=== PATIENT | male | born 1960 | race Caucasian/White ===

== ENCOUNTER 2022-03-23 12:55 | Inpatient (IN) | payer MEDICARE, OTHER ==
[~2022-03-23] VITALS: Ht 170.2 cm; Wt 74.4 kg
[2022-03-23] MEDS ORDERED: IV NS 0.9% 1,000 ML BAG IV ONE (15:00)
[2022-03-23 16:12] LABS: BASOPHILS % (AUTO) 0.2 % (0.0-2.0); EOSINOPHILS % (AUTO) 0.2 % (0.0-6.0); HEMATOCRIT 50 % (39-51); HEMOGLOBIN 16.1 g/dL (13.5-17.5); LYMPHOCYTES # (AUTO) 0.8 K/uL (0.8-4.8); LYMPHOCYTES % (AUTO) 5.5 % (20.0-44.0); MEAN CORPUSCULAR HGB CONC 32 g/dl (31.0-36.0); MEAN CORPUSCULAR VOLUME 87 fL (80-96); MONOCYTES # (AUTO) 1.5 K/uL (0.1-1.30); MONOCYTES % (AUTO) 10.1 % (2.0-12.0); NEUTROPHILS # (AUTO) 12.5 K/uL (1.8-8.9); PLATELET COUNT (AUTO) 133 K/uL (150-450); RED BLOOD CELL COUNT(AUTO) 5.81 MIL/uL (4.5-6.0); WHITE BLOOD COUNT (AUTO) 14.9 K/uL (4.3-11.0)
[2022-03-23 16:44] LABS: ALBUMIN 3.3 g/dL (3.4-5.0); BILIRUBIN,DIRECT 0.3 mg/dL (0.0-0.2); CALCIUM, SERUM 9.9 mg/dL (8.5-10.1); CREATININE 1.7 mg/dL (0.6-1.3); POTASSIUM 4.6 mmol/L (3.5-5.1); TOTAL PROTEIN, SERUM 8.4 g/dL (6.4-8.2)
[2022-03-23] MEDS ORDERED: DEXTROSE 50%-WATER 50 ML DISP.SYRIN IV PRN ×2 (18:30→19:30)
[2022-03-23] MEDS ORDERED: Z GUARD REMEDY 4 OZ OINT TP PRN (18:30)
[2022-03-23] MEDS ORDERED: ZOLPIDEM TARTRATE 5 MG TABLET PO PRN ×2 (18:30→19:30)
[2022-03-23] MEDS ORDERED: MAG HYDROX/AL HYDROX/SIMETH 30 ML UDC PO PRN (18:30)
[2022-03-23] MEDS ORDERED: INSULIN REGULAR, HUMAN 100 UNIT/ML 3 ML VIAL SQ PRN (18:30)
[2022-03-23] MEDS ORDERED: *INSULIN REGULAR(HUMULIN R)HUM 100 UNIT/ML VIAL SQ PRN (18:30)
[2022-03-23] MEDS ORDERED: IV NS 0.9% 1,000 ML IV PRN (18:30)
[2022-03-23] MEDS ORDERED: ACETAMINOPHEN 325 MG TABLET PO PRN ×2 (18:30→19:30)
[2022-03-23] MEDS ORDERED: MAGNESIUM HYDROXIDE 30 ML UDC PO PRN ×2 (18:30→19:30)
[2022-03-23] MEDS ORDERED: ONDANSETRON HCL/PF 4 MG/2 ML VIAL IVP PRN ×2 (18:30→19:30)
[2022-03-23] MEDS ORDERED: INSU100V7 SQ (18:31)
[2022-03-23] MEDS ORDERED: FAMO20TA8 PO (18:31)
[2022-03-23] MEDS ORDERED: ENOX80DI9 SQ (18:31)
[2022-03-23] MEDS ORDERED: SITA25TA PO (18:31)
[2022-03-23] MEDS ORDERED: TOLT4CAP PO (18:31)
[2022-03-23] MEDS ORDERED: ATOR10TA PO (18:31)
[2022-03-23] MEDS ORDERED: GABA300C PO (18:31)
[2022-03-23] MEDS ORDERED: ESCI10TA PO (18:31)
[2022-03-23] MEDS ORDERED: BUPR-54 PO (18:31)
[2022-03-23] MEDS ORDERED: BUSP10TA35 PO (18:31)
[2022-03-23] MEDS ORDERED: METO25TA20 PO (18:31)
[2022-03-23] MEDS ORDERED: BLOOD SUGAR DIAGNOSTIC 1 EACH STRIP VI SCH (19:30)
[2022-03-23] MEDS ORDERED: HYDROCODONE/APAP 5/325MG TABLET PO PRN (19:30)
[2022-03-23] MEDS ORDERED: MORPHINE SULFATE INJ 2 MG/ML DISP.SYRIN IV PRN (19:30)
[2022-03-23] MEDS ORDERED: ENOXAPARIN SODIUM 80 MG/0.8 ML DISP.SYRIN SQ SCH (21:00)
[2022-03-23] MEDS ORDERED: CEFTRIAXONE 1 G VIAL ONE (22:18)
[2022-03-23] MEDS: CEFTRIAXONE 1 G in IV D5W 50 ML IV SCH (22:30)
[2022-03-23] MEDS: BLOOD SUGAR DIAGNOSTIC 1 EACH STRIP VI SCH (22:31)
[2022-03-23] MEDS: ATORVASTATIN 10 MG TABLET PO SCH (22:31)
[2022-03-23] MEDS: *INSULIN REGULAR(HUMULIN R)HUM 100 UNIT/ML VIAL SQ PRN (22:34)
[2022-03-23] MEDS: METOPROLOL TARTRATE 25 MG TABLET PO SCH (22:35)
[2022-03-23] MEDS: IV NS 0.9% 1,000 ML IV SCH (22:37)
[2022-03-23] MEDS ORDERED: INSULIN GLARGINE, 100 UNIT/ML CARTRIDGE SQ ONE (23:21)
[2022-03-23] MEDS: INSULIN GLARGINE, 100 UNIT/ML CARTRIDGE SQ SCH (23:39)
[2022-03-24 04:00] VITALS: BP 108/73
[2022-03-24] MEDS: IV NS 0.9% 1,000 ML IV SCH ×2 (06:44→18:04)
[2022-03-24 06:57] LABS: BASOPHILS % (AUTO) 0.3 % (0.0-2.0); EOSINOPHILS % (AUTO) 0.7 % (0.0-6.0); HEMATOCRIT 45 % (39-51); HEMOGLOBIN 14.6 g/dL (13.5-17.5); LYMPHOCYTES # (AUTO) 1.4 K/uL (0.8-4.8); LYMPHOCYTES % (AUTO) 10.5 % (20.0-44.0); MEAN CORPUSCULAR HGB CONC 32 g/dl (31.0-36.0); MEAN CORPUSCULAR VOLUME 86 fL (80-96); MONOCYTES # (AUTO) 1.5 K/uL (0.1-1.30); MONOCYTES % (AUTO) 10.9 % (2.0-12.0); NEUTROPHILS # (AUTO) 10.6 K/uL (1.8-8.9); NEUTROPHILS % (AUTO) 77.6 % (43.0-81.0); PLATELET COUNT (AUTO) 109 K/uL (150-450); RED BLOOD CELL COUNT(AUTO) 5.28 MIL/uL (4.5-6.0); WHITE BLOOD COUNT (AUTO) 13.7 K/uL (4.3-11.0)
[2022-03-24 07:23] LABS: ALBUMIN 2.7 g/dL (3.4-5.0); BILIRUBIN,TOTAL 0.8 mg/dL (0.2-1.0); CREATININE 1.2 mg/dL (0.6-1.3); PHOSPHORUS 2.7 mg/dL (2.5-4.9); POTASSIUM 3.9 mmol/L (3.5-5.1); TOTAL PROTEIN, SERUM 7.4 g/dL (6.4-8.2)
[2022-03-24] MEDS: INSULIN ASPART/LISPRO 100 UNIT/ML CARTRIDGE SQ SCH ×3 (07:30→17:30)
[2022-03-24 08:51] LABS: THYROID STIMULATING HORMONE 2.09 uIU/mL (0.358-3.74)
[2022-03-24] MEDS ORDERED: ENOXAPARIN SODIUM 40 MG/0.4 ML DISP.SYRIN SQ SCH ×2 (09:00)
[2022-03-24] MEDS ORDERED: hydrALAZINE HCL 25 MG TABLET PO SCH (09:00)
[2022-03-24] MEDS: DOCUSATE SODIUM 100 MG CAPSULE PO SCH ×2 (09:07→17:00)
[2022-03-24] MEDS: BUPROPION XL 150 MG TAB.ER.24 PO SCH (09:07)
[2022-03-24] MEDS: METOPROLOL TARTRATE 25 MG TABLET PO SCH ×2 (09:08→18:03)
[2022-03-24] MEDS: GABAPENTIN 300 MG CAPSULE PO SCH ×3 (09:08→18:02)
[2022-03-24] MEDS: busPIRone 5 MG TABLET PO SCH ×2 (09:09→18:03)
[2022-03-24] MEDS: ESCITALOPRAM OXALATE (10 MG) 10 MG TABLET PO SCH (09:09)
[2022-03-24] MEDS: BLOOD SUGAR DIAGNOSTIC 1 EACH STRIP VI SCH ×4 (09:10→22:00)
[2022-03-24] MEDS: PANTOPRAZOLE 40 MG TABLET.DR PO SCH (09:19)
[2022-03-24] MEDS: CEFTRIAXONE 1 G in IV D5W 50 ML IV SCH (09:19)
[2022-03-24] MEDS ORDERED: hydrALAZINE HCL 25 MG TABLET PO PRN (12:00)
[2022-03-24] MEDS: ENOXAPARIN SODIUM 80 MG/0.8 ML DISP.SYRIN SQ SCH ×2 (12:00→13:51)
[2022-03-24] MEDS: BETHANECHOL CHLORIDE (10 MG) 10 MG TABLET PO SCH ×2 (12:24→18:06)
[2022-03-24] MEDS: GLUCERNA SHAKE 237 ML CAN PO SCH (17:00)
[2022-03-24 20:00] VITALS: BP 102/65
[2022-03-24] MEDS: MUPIROCIN OINT 2% 22 GM TUBE NS SCH (23:00)
[2022-03-24] MEDS: ATORVASTATIN 10 MG TABLET PO SCH (23:00)
[2022-03-24] MEDS: *INSULIN REGULAR(HUMULIN R)HUM 100 UNIT/ML VIAL SQ PRN (23:03)
[2022-03-24] MEDS: INSULIN GLARGINE, 100 UNIT/ML CARTRIDGE SQ SCH (23:14)
[2022-03-25] MEDS: IV NS 0.9% 1,000 ML IV SCH ×2 (05:46→15:50)
[2022-03-25 06:28] LABS: BASOPHILS % (AUTO) 0.3 % (0.0-2.0); EOSINOPHILS % (AUTO) 0.4 % (0.0-6.0); HEMATOCRIT 42 % (39-51); HEMOGLOBIN 13.2 g/dL (13.5-17.5); LYMPHOCYTES # (AUTO) 1.5 K/uL (0.8-4.8); LYMPHOCYTES % (AUTO) 10.6 % (20.0-44.0); MEAN CORPUSCULAR HGB CONC 32 g/dl (31.0-36.0); MEAN CORPUSCULAR VOLUME 87 fL (80-96); MONOCYTES # (AUTO) 1.8 K/uL (0.1-1.30); MONOCYTES % (AUTO) 12.5 % (2.0-12.0); NEUTROPHILS % (AUTO) 76.2 % (43.0-81.0); PLATELET COUNT (AUTO) 99 K/uL (150-450); RED BLOOD CELL COUNT(AUTO) 4.81 MIL/uL (4.5-6.0); WHITE BLOOD COUNT (AUTO) 14.5 K/uL (4.3-11.0)
[2022-03-25 06:48] LABS: CALCIUM, SERUM 8.8 mg/dL (8.5-10.1); CREATININE 1.4 mg/dL (0.6-1.3); POTASSIUM 3.8 mmol/L (3.5-5.1)
[2022-03-25 08:00] VITALS: BP 115/70
[2022-03-25] MEDS: GLUCERNA SHAKE 237 ML CAN PO SCH ×2 (08:00→16:47)
[2022-03-25] MEDS: CEFTRIAXONE 1 G in IV D5W 50 ML IV SCH (08:56)
[2022-03-25] MEDS: GABAPENTIN 300 MG CAPSULE PO SCH ×3 (08:56→16:46)
[2022-03-25] MEDS: BLOOD SUGAR DIAGNOSTIC 1 EACH STRIP VI SCH ×4 (08:56→23:14)
[2022-03-25] MEDS: busPIRone 5 MG TABLET PO SCH ×2 (08:57→16:47)
[2022-03-25] MEDS: METOPROLOL TARTRATE 25 MG TABLET PO SCH ×2 (08:57→16:47)
[2022-03-25] MEDS: BUPROPION XL 150 MG TAB.ER.24 PO SCH (08:57)
[2022-03-25] MEDS: DOCUSATE SODIUM 100 MG CAPSULE PO SCH ×3 (08:57→17:00)
[2022-03-25] MEDS: BETHANECHOL CHLORIDE (10 MG) 10 MG TABLET PO SCH ×3 (08:57→16:47)
[2022-03-25] MEDS: PANTOPRAZOLE 40 MG TABLET.DR PO SCH (08:57)
[2022-03-25] MEDS: MUPIROCIN OINT 2% 22 GM TUBE NS SCH ×2 (08:58→22:23)
[2022-03-25] MEDS: ESCITALOPRAM OXALATE (10 MG) 10 MG TABLET PO SCH (08:58)
[2022-03-25] MEDS: INSULIN ASPART/LISPRO 100 UNIT/ML CARTRIDGE SQ SCH ×3 (08:59→16:50)
[2022-03-25] MEDS: ENOXAPARIN SODIUM 80 MG/0.8 ML DISP.SYRIN SQ SCH ×2 (09:00→09:07)
[2022-03-25] MEDS: INSULIN REGULAR, HUMAN 100 UNIT/ML 3 ML VIAL SQ PRN ×3 (09:03→16:49)
[2022-03-25 16:00] VITALS: BP 119/71
[2022-03-25] MEDS: VANCOMYCIN HCL 0.75 GM in IV D5W 250 ML IV SCH (18:56)
[2022-03-25 20:00] VITALS: BP 105/69
[2022-03-25] MEDS: ATORVASTATIN 10 MG TABLET PO SCH (22:23)
[2022-03-25] MEDS: INSULIN GLARGINE, 100 UNIT/ML CARTRIDGE SQ SCH (23:12)
[2022-03-25] MEDS: *INSULIN REGULAR(HUMULIN R)HUM 100 UNIT/ML VIAL SQ PRN (23:14)
[2022-03-26] MEDS: IV NS 0.9% 1,000 ML IV SCH (03:30)
[2022-03-26 04:00] VITALS: BP 119/72
[2022-03-26] MEDS: VANCOMYCIN HCL 0.75 GM in IV D5W 250 ML IV SCH ×2 (06:43→19:24)
[2022-03-26 07:07] LABS: BASOPHILS % (AUTO) 0.3 % (0.0-2.0); HEMATOCRIT 37 % (39-51); LYMPHOCYTES # (AUTO) 1.1 K/uL (0.8-4.8); LYMPHOCYTES % (AUTO) 8.9 % (20.0-44.0); MEAN CORPUSCULAR HGB CONC 33 g/dl (31.0-36.0); MEAN CORPUSCULAR VOLUME 85 fL (80-96); MONOCYTES # (AUTO) 1.5 K/uL (0.1-1.30); MONOCYTES % (AUTO) 12.6 % (2.0-12.0); NEUTROPHILS # (AUTO) 9.5 K/uL (1.8-8.9); NEUTROPHILS % (AUTO) 77.2 % (43.0-81.0); PLATELET COUNT (AUTO) 84 K/uL (150-450); RED BLOOD CELL COUNT(AUTO) 4.33 MIL/uL (4.5-6.0); WHITE BLOOD COUNT (AUTO) 12.3 K/uL (4.3-11.0)
[2022-03-26 07:29] LABS: CALCIUM, SERUM 8.1 mg/dL (8.5-10.1); CREATININE 1.2 mg/dL (0.6-1.3); POTASSIUM 3.4 mmol/L (3.5-5.1)
[2022-03-26] MEDS: PANTOPRAZOLE 40 MG TABLET.DR PO SCH (07:30)
[2022-03-26] MEDS: BLOOD SUGAR DIAGNOSTIC 1 EACH STRIP VI SCH ×4 (07:52→22:34)
[2022-03-26 08:00] VITALS: BP 136/72
[2022-03-26] MEDS: INSULIN ASPART/LISPRO 100 UNIT/ML CARTRIDGE SQ SCH ×3 (08:04→17:30)
[2022-03-26] MEDS: DOCUSATE SODIUM 100 MG CAPSULE PO SCH ×2 (08:13→17:00)
[2022-03-26] MEDS: ENOXAPARIN SODIUM 80 MG/0.8 ML DISP.SYRIN SQ SCH (08:14)
[2022-03-26] MEDS: GLUCERNA SHAKE 237 ML CAN PO SCH ×2 (08:46→17:00)
[2022-03-26] MEDS: CEFTRIAXONE 1 G in IV D5W 50 ML IV SCH (08:47)
[2022-03-26] MEDS: busPIRone 5 MG TABLET PO SCH ×2 (08:47→17:25)
[2022-03-26] MEDS: ESCITALOPRAM OXALATE (10 MG) 10 MG TABLET PO SCH (08:48)
[2022-03-26] MEDS: GABAPENTIN 300 MG CAPSULE PO SCH ×3 (08:48→17:25)
[2022-03-26] MEDS: METOPROLOL TARTRATE 25 MG TABLET PO SCH ×2 (08:48→17:25)
[2022-03-26] MEDS: BUPROPION XL 150 MG TAB.ER.24 PO SCH (08:49)
[2022-03-26] MEDS: BETHANECHOL CHLORIDE (10 MG) 10 MG TABLET PO SCH ×3 (08:49→18:22)
[2022-03-26] MEDS: MUPIROCIN OINT 2% 22 GM TUBE NS SCH ×2 (08:57→22:34)
[2022-03-26] MEDS ORDERED: IV NS 0.9% 1,000 ML IV PRN (09:55)
[2022-03-26 12:00] VITALS: BP 110/71
[2022-03-26] MEDS ORDERED: POTASSIUM CHLORIDE 20 MEQ TAB.PRT.SR PO SCH (12:00)
[2022-03-26 12:13] LABS: EOSINOPHILS % (MANUAL) 1 % (0-4); LYMPHOCYTES % (MANUAL) 11 % (16-48); MONOCYTES % (MANUAL) 7 % (0-11.0); NEUTROPHILS % (MANUAL) 81 (42-76)
[2022-03-26] MEDS: POTASSIUM CHLORIDE 20 MEQ TAB.PRT.SR PO SCH ×2 (13:57→14:00)
[2022-03-26] MEDS ORDERED: POTASSIUM CHLORIDE 20 MEQ POWDER PACKET PO ONE (14:30)
[2022-03-26 16:00] VITALS: BP 113/73
[2022-03-26] MEDS: PROSOURCE / PROSTAT (PYXIS) 30 ML UDC GT SCH (17:00)
[2022-03-26] MEDS: POTASSIUM CL. PREMIX PERIPHER. 50 ML IV SCH ×2 (17:24→18:51)
[2022-03-26 20:00] VITALS: BP 116/69
[2022-03-26] MEDS: ATORVASTATIN 10 MG TABLET PO SCH (22:22)
[2022-03-26] MEDS: INSULIN GLARGINE, 100 UNIT/ML CARTRIDGE SQ SCH (22:29)
[2022-03-26] MEDS: *INSULIN REGULAR(HUMULIN R)HUM 100 UNIT/ML VIAL SQ PRN (22:30)
[2022-03-27 04:00] VITALS: BP 112/65
[2022-03-27 06:58] LABS: BASOPHILS # (AUTO) 0.1 K/uL (0.0-0.2); BASOPHILS % (AUTO) 0.5 % (0.0-2.0); EOSINOPHILS % (AUTO) 1.9 % (0.0-6.0); HEMATOCRIT 39 % (39-51); HEMOGLOBIN 12.5 g/dL (13.5-17.5); LYMPHOCYTES # (AUTO) 1.2 K/uL (0.8-4.8); LYMPHOCYTES % (AUTO) 10.5 % (20.0-44.0); MEAN CORPUSCULAR HGB CONC 32 g/dl (31.0-36.0); MEAN CORPUSCULAR VOLUME 86 fL (80-96); MONOCYTES # (AUTO) 1.4 K/uL (0.1-1.30); MONOCYTES % (AUTO) 12.6 % (2.0-12.0); NEUTROPHILS # (AUTO) 8.1 K/uL (1.8-8.9); NEUTROPHILS % (AUTO) 74.5 % (43.0-81.0); PLATELET COUNT (AUTO) 100 K/uL (150-450); RED BLOOD CELL COUNT(AUTO) 4.52 MIL/uL (4.5-6.0); WHITE BLOOD COUNT (AUTO) 10.9 K/uL (4.3-11.0)
[2022-03-27 07:15] LABS: CALCIUM, SERUM 8.3 mg/dL (8.5-10.1); POTASSIUM 3.5 mmol/L (3.5-5.1)
[2022-03-27] MEDS: VANCOMYCIN HCL 0.75 GM in IV D5W 250 ML IV SCH ×2 (07:35→18:57)
[2022-03-27] MEDS: BLOOD SUGAR DIAGNOSTIC 1 EACH STRIP VI SCH ×4 (07:55→22:14)
[2022-03-27 08:00] VITALS: BP 130/68
[2022-03-27] MEDS: PANTOPRAZOLE 40 MG TABLET.DR PO SCH (08:11)
[2022-03-27] MEDS: INSULIN ASPART/LISPRO 100 UNIT/ML CARTRIDGE SQ SCH ×3 (08:12→17:14)
[2022-03-27] MEDS: INSULIN REGULAR, HUMAN 100 UNIT/ML 3 ML VIAL SQ PRN ×3 (08:14→22:16)
[2022-03-27] MEDS: GLUCERNA SHAKE 237 ML CAN PO SCH ×2 (08:15→17:19)
[2022-03-27] MEDS: DOCUSATE SODIUM 100 MG CAPSULE PO SCH ×3 (09:00→16:59)
[2022-03-27] MEDS: BETHANECHOL CHLORIDE (10 MG) 10 MG TABLET PO SCH ×3 (09:14→16:58)
[2022-03-27] MEDS: CEFTRIAXONE 1 G in IV D5W 50 ML IV SCH (09:14)
[2022-03-27] MEDS: PROSOURCE / PROSTAT (PYXIS) 30 ML UDC GT SCH ×2 (09:14→17:19)
[2022-03-27] MEDS: BUPROPION XL 150 MG TAB.ER.24 PO SCH (09:15)
[2022-03-27] MEDS: ESCITALOPRAM OXALATE (10 MG) 10 MG TABLET PO SCH (09:15)
[2022-03-27] MEDS: busPIRone 5 MG TABLET PO SCH ×2 (09:15→16:57)
[2022-03-27] MEDS: GABAPENTIN 300 MG CAPSULE PO SCH ×3 (09:16→16:56)
[2022-03-27] MEDS: METOPROLOL TARTRATE 25 MG TABLET PO SCH ×2 (09:16→16:57)
[2022-03-27] MEDS: MUPIROCIN OINT 2% 22 GM TUBE NS SCH ×2 (09:17→21:56)
[2022-03-27 16:00] VITALS: BP 145/104
[2022-03-27] MEDS ORDERED: ENOXAPARIN SODIUM 40 MG/0.4 ML DISP.SYRIN SQ SCH (17:00)
[2022-03-27 20:00] VITALS: BP 114/66
[2022-03-27] MEDS: ATORVASTATIN 10 MG TABLET PO SCH (22:14)
[2022-03-27] MEDS: INSULIN GLARGINE, 100 UNIT/ML CARTRIDGE SQ SCH (22:18)
[2022-03-28 04:00] VITALS: BP 117/69
[2022-03-28] MEDS: VANCOMYCIN HCL 0.75 GM in IV D5W 250 ML IV SCH (06:17)
[2022-03-28 07:13] LABS: CALCIUM, SERUM 8.2 mg/dL (8.5-10.1); CREATININE 1.2 mg/dL (0.6-1.3); POTASSIUM 3.3 mmol/L (3.5-5.1)
[2022-03-28] MEDS: PANTOPRAZOLE 40 MG TABLET.DR PO SCH (07:58)
[2022-03-28] MEDS: BLOOD SUGAR DIAGNOSTIC 1 EACH STRIP VI SCH ×2 (07:58→12:15)
[2022-03-28] MEDS: PROSOURCE / PROSTAT (PYXIS) 30 ML UDC GT SCH ×2 (09:00→09:44)
[2022-03-28] MEDS ORDERED: LINAGLIPTIN 5 MG TABLET PO SCH (09:00)
[2022-03-28] MEDS: GLUCERNA SHAKE 237 ML CAN PO SCH (09:07)
[2022-03-28 09:52] VITALS: BP 133/70
[2022-03-28] MEDS: busPIRone 5 MG TABLET PO SCH (09:52)
[2022-03-28] MEDS: ESCITALOPRAM OXALATE (10 MG) 10 MG TABLET PO SCH (09:52)
[2022-03-28] MEDS: INSULIN REGULAR, HUMAN 100 UNIT/ML 3 ML VIAL SQ PRN ×2 (09:52→12:23)
[2022-03-28] MEDS: METOPROLOL TARTRATE 25 MG TABLET PO SCH (09:52)
[2022-03-28] MEDS: BUPROPION XL 150 MG TAB.ER.24 PO SCH (09:54)
[2022-03-28] MEDS: GABAPENTIN 300 MG CAPSULE PO SCH (09:54)
[2022-03-28] MEDS: CEFTRIAXONE 1 G in IV D5W 50 ML IV SCH (09:54)
[2022-03-28] MEDS: DOCUSATE SODIUM 100 MG CAPSULE PO SCH ×2 (09:54→10:33)
[2022-03-28] MEDS: MUPIROCIN OINT 2% 22 GM TUBE NS SCH (09:55)
[2022-03-28] MEDS ORDERED: POTASSIUM CHLORIDE 20 MEQ TAB.PRT.SR PO ONE (10:00)
[2022-03-28] MEDS: BETHANECHOL CHLORIDE (10 MG) 10 MG TABLET PO SCH (10:41)
== END 2022-03-28 13:47 | DRG 638 ==
LOC: ER 17:47 → MEDSG1 20:29
PROVIDERS: ADMIT Internal Medicine; ATTEND Internal Medicine
PROC: 05HA33Z Insertion of Infusion Device into Left Brachial Vein, Percutaneous Approach (ICD-10-PCS; principal; 2022-03-24)
DX: E11.65 Type 2 diabetes mellitus with hyperglycemia (principal); D68.59 Other primary thrombophilia; N17.9 Acute kidney failure, unspecified; E87.1 Hypo-osmolality and hyponatremia; E44.0 Moderate protein-calorie malnutrition; N13.2 Hydronephrosis with renal and ureteral calculous obstruction; I82.411 Acute embolism and thrombosis of right femoral vein; I82.431 Acute embolism and thrombosis of right popliteal vein; E86.0 Dehydration; K60.5 Anorectal fistula; Z20.822 Contact with and (suspected) exposure to COVID-19; Z93.2 Ileostomy status; Z88.2 Allergy status to sulfonamides; Z79.84 Long term (current) use of oral hypoglycemic drugs; Z79.01 Long term (current) use of anticoagulants; Z79.4 Long term (current) use of insulin; Z90.49 Acquired absence of other specified parts of digestive tract; Z91.51 Personal history of suicidal behavior; Z91.19 Patient's noncompliance with other medical treatment and regimen; Z91.14 Patient's other noncompliance with medication regimen; Z87.891 Personal history of nicotine dependence; Z86.718 Personal history of other venous thrombosis and embolism; Z86.19 Personal history of other infectious and parasitic diseases; Z90.79 Acquired absence of other genital organ(s); K60.3 Anal fistula; D72.829 Elevated white blood cell count, unspecified; E11.40 Type 2 diabetes mellitus with diabetic neuropathy, unspecified; F29 Unspecified psychosis not due to a substance or known physiological condition; E78.5 Hyperlipidemia, unspecified; E87.6 Hypokalemia; E88.09 Other disorders of plasma-protein metabolism, not elsewhere classified; F32.A Depression, unspecified; N18.9 Chronic kidney disease, unspecified; N40.0 Benign prostatic hyperplasia without lower urinary tract symptoms; I12.9 Hypertensive chronic kidney disease with stage 1 through stage 4 chronic kidney disease, or unspecified chronic kidney disease; N32.3 Diverticulum of bladder; N21.0 Calculus in bladder; R62.7 Adult failure to thrive; Z81.8 Family history of other mental and behavioral disorders; Z79.899 Other long term (current) drug therapy; Z87.19 Personal history of other diseases of the digestive system; D64.9 Anemia, unspecified; B95.61 Methicillin susceptible Staphylococcus aureus infection as the cause of diseases classified elsewhere; Z68.25 Body mass index [BMI] 25.0-25.9, adult
CPT/HCPCS: 36410; 36415; 71045-TC; 80048-TC; 80053-TC; 80076-TC; 80202-TC; 82962-TC; 83690-TC; 83735-TC; 84100-TC; 84443-TC; 85025-TC; 87040-TC; 87081-TC; 93970-TC; 94799-TC; 97116-TC; 97530-TC; A6253; A6403; A6407; C9803; G0378; J0696; J1650; J1815; J3370; J3480; J7030; J7060